=== PATIENT | male | born 1945 | race Caucasian/White ===

== ENCOUNTER → 2016-10-23 | Outpatient (CLI) | payer OTHER, BC ==
[~2016-10-23] MED LIST: CLON0.5T3 PO; IBUP-1050 PO; MULT-506 PO; OXYC-88 PO
== END | disposition home or self-care (01) ==
LOC: C.RDSM 11:45
PROVIDERS: ATTEND Physical Medicine & Rehabilitation Sports Medicine
DX: M17.12 Unilateral primary osteoarthritis, left knee (principal); M79.671 Pain in right foot

== ENCOUNTER 2017-02-09 15:05 | Emergency (ER) | payer OTHER, BC ==
[~2017-02-09] VITALS: Ht 177.8 cm; Wt 101.8 kg
[~2017-02-09 15:05] MED LIST changes: -MULT-506 PO
[2017-02-09] MEDS ORDERED: MULT-506 PO (15:13)
[2017-02-09 15:22] VITALS: TEMP 36.9; Ht 177.8 cm; Wt 101.8 kg
[2017-02-09] MEDS ORDERED: KLN5X PO (16:00)
[2017-02-09] MEDS ORDERED: RANI150T2 PO (16:00)
[2017-02-09] MEDS ORDERED: CHOL1000 PO (16:00)
--- NOTE | 2017-02-09 16:20 | EMERGENCY ROOM VISIT NOTE ---
History Report prepared by Codi: Zia Nj Under the Supervision of: Dr. Edwin Johns M.D. First contact with patient: 15:27 Chief Complaint: CONSTIPATION Stated Complaint: HARD STOOL LODGED IN ANUS, CANNOT MOVE Nursing Triage Summary: Pt states, "I suffer from constipation from medication I take. A very hard stool got stuck half way in and half way out. To tell you the truth while I was sitting out there, it feels like it receded so it's not as painful." Denies abd pain or n/v. History of Present Illness The patient is a 71 year old male who presents to the Emergency Room with complaints of constipation starting yesterday. The patient states that he has chronic constipation and today he tried to have a bowel movement, however nothing would come out and was stuck in his anus. The patient states that he thinks that the constipation is due to his pantoprazole for his GERD, though he is taking ranitidine now, and he uses Colace as a stool softener every couple of days. He reports that he has not taken a stool softener for the past ten days , and he has been doing well until the past two days. He notes that he normally has a bowel movement every day, and he has not had one since yesterday. The patient denies any fever, chills, shortness of breath, chest pain, nausea, vomiting, abdominal pain, hematochezia, numbness or weakness in his legs, ad urinary symptoms. 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 Source of History: patient Onset: yesterday Position: other (global) Quality: other (constipation) Timing: constant Associated Symptoms: No fevers, No chills, No chest pain, No SOB, No nausea , No vomiting, No abdominal pain, No hematochezia, No weakness, No numbness Review of Systems See HPI for pertinent positives & negatives. A total of 10 systems reviewed and were otherwise negative. Past Medical & Surgical Medical Problems: (1) Lumbar stenosis with neurogenic claudication Old medical records were reviewed. Nurse's notes were reviewed and I agree with. Social History Smoking Status: Never Smoker Marital Status: Housing Status: lives with family Occupation Status: retired Current/Historical Medications Scheduled Cholecalciferol (Vitamin D3), 1,000 INTER.UNIT PO DAILY Clonazepam (Clonazepam), 0.5 MG PO HS Multivitamin (Multivitamin), 1 TAB PO QAM Ranitidine HCl (Ranitidine HCl), 150 MG PO BID Allergies Coded Allergies: Goodrich (Verified Allergy, Unknown, HAY FEVER, 04/18/15) Cat Dander (Verified Allergy, Unknown, HAY FEVER, 04/18/15) Sulfa Drugs (Verified Allergy, Unknown, extreme pain throughout entire body, 04/18/15) Physical Exam Vital Signs Date Time Temp Pulse Resp B/P (MAP) Pulse Ox O2 Delivery O2 Flow Rate FiO2 02/09/17 16:30 90 18 118/81 99 02/09/17 15:22 36.9 100 18 133/79 95 Room Air Physical Exam General: Non-ill appearing middle aged male in no acute distress. HEENT: Normal cephalic atraumatic. Pupils are equal round and reactive to light. Extraocular movements are intact. Oropharynx is pink with moist mucous membranes. No swelling of the mouth lips or tongue. Neck: Supple with a midline trachea. No meningeal signs or stiffness, no JVD or bruits. No Stridor. Chest: Clear to auscultation bilaterally. No wheezes or rhonchi. No increased work of breathing. Heart: regular rate and rhythm. Abdomen: Soft nontender, nondistended without rebound guarding or rigidity. Extremities: No cyanosis clubbing or edema. No calf tenderness or assymetry Spine/Back. Non tender to palpation. No CVA tenderness Rectal: There is hard stool that is holding the rectum open. It was manually disimpacted. It was heme occoult negative. Noral rectal tone. Normal sensation in the rectal area. Skin: Good turgor without rashes. Neurologic exam: Cranial nerves two through 12 are intact. Motor and sensation are intact and symmetrical throughout. Medical Decision & Procedures ED Course 1527: The patient was evaluated by the medical student. 1600: Past medical records reviewed. The patient was evaluated in room B7, and a complete history and physical examination were performed. I discussed the discharge instructions with the patient, and he was agreeable. He will be discharged home. Medical Decision Differentials include, but are not limited to; constipation, cauda equina, bowel obstruction. In the patient seems to feeling better. He has normal rectal tone and nothing to suggest cauda equina syndrome. His stool is nonbloody and guaiac-negative He feels better when like to go home. His abdomen is benign. He should use a stool softener and/or enema/dulcolax. He should return if: increasing pain or problems, any new problems or concerns. He should follow-up with his doctor this week for recheck if not better. Medication Reconcilliation Current Medication List: was personally reviewed by me Blood Pressure Screening Patient's blood pressure: Normal blood pressure Impression Primary Impression: Constipation Scribe Attestation The scribe's documentation has been prepared under my direction and personally reviewed by me in its entirety. I confirm that the note above accurately reflects all work, treatment, procedures, and medical decision making performed by me. Departure Information Dispostion Home / Self-Care Referrals Amrit Umaña D.O. (PCP) Forms HOME CARE DOCUMENTATION FORM, IMPORTANT VISIT INFORMATION Patient Instructions My [facility] Additional Instructions Rest. Use a stool softener You can also try [id number] Dulcolax suppositories or enema Return if: worsening of symptoms, numbness or weakness, fever or chills, any new problems or concerns Follow-up with your doctor this week for recheck if not 100% better
[2017-02-09 16:30] VITALS: BP 118/81; PULSE 90; O2SAT 99
== END 2017-02-09 16:32 | disposition home or self-care (01) ==
LOC: C.EDB 15:06
DX: K59.00 Constipation, unspecified (principal); M48.062 Spinal stenosis, lumbar region with neurogenic claudication; Z79.899 Other long term (current) drug therapy

== ENCOUNTER → 2017-02-16 | Outpatient (CLI) | payer OTHER, BC ==
[~2017-02-16] MED LIST changes: +CHOL1000 PO; -CLON0.5T3 PO; -IBUP-1050 PO; +KLN5X PO; +MULT-506 PO; -OXYC-88 PO; +RANI150T2 PO
[2017-02-16 16:20] LABS: BLOOD UREA NITROGEN 20 mg/dl (7-18); BUN/CREATININE RATIO 20.7 (10-20); CALCIUM 9.3 mg/dl (8.5-10.1); CARBON DIOXIDE 31 mmol/L (21-32); CHLORIDE 104 mmol/L (98-107); CREATININE 0.97 mg/dl (0.60-1.40); GLUCOSE 118 mg/dl (70-99); POTASSIUM 3.9 mmol/L (3.5-5.1); SODIUM 137 mmol/L (136-145)
== END | disposition home or self-care (01) ==
LOC: C.LAB 14:52
PROVIDERS: ATTEND Family Medicine
DX: R29.898 Other symptoms and signs involving the musculoskeletal system (principal)

== ENCOUNTER → 2017-02-17 | Outpatient (CLI) | payer OTHER, BC ==
[~2017-02-17] MED LIST changes: +GADAVIST IV PRN
--- NOTE | 2017-02-17 14:16 | DIAGNOSTIC IMAGING REPORT ---
LUMBAR SPINE MRI WITH AND WITHOUT CONTRAST HISTORY: Postop. BILATERAL LEG WEAKNESS TECHNIQUE: Multiplanar multisequence MRI of the lumbar spine was performed both before and after the intravenous administration of contrast. COMPARISON: Lumbar spine MRI 02/19/2015. FINDINGS: For the purpose of the report the L5-S1 disc space will be located on axial image 23 of 25. Alignment is intact. No fractures within the lumbar spine. Normal marrow signal intensity within the vertebral bodies. Moderate to severe disc space narrowing at L4-L5 and mild disc space narrowing at L5-S1. This remains unchanged. Moderate facet osteoarthritis at L5-S1 and mild facet osteoarthritis at L3-L4. The conus terminus at the L1 level. Posterior decompression at L4-L5. Small amount of edema and enhancement at the laminectomy site suggestive of postoperative change. No loculated fluid collections identified. The visualized retroperitoneal soft tissues are unremarkable. T11-T12: There is a left paracentral focal disc protrusion which is increased in size. This abuts and slightly deforms the left anterior cord. This results in severe left-sided neural foraminal narrowing. T12-L1: No significant central canal or neural foraminal narrowing. L1-L2: Tiny right paracentral focal disc protrusion without significant central canal or left-sided neural foraminal narrowing. Mild right-sided neural foraminal narrowing. This has slightly progressed. L2-L3: Small focal central disc protrusion which has slight progressed. This results in mild central canal narrowing. There is also mild right-sided neural foraminal narrowing. L3-L4: Broad-based posterior disc protrusion asymmetric to the left with ligamentum and facet hypertrophy. This results in moderate central canal narrowing. There is also moderate bilateral neural foraminal narrowing. This is similar to the prior study. L4-L5: No significant central canal narrowing due to the posterior decompression. Moderate right and mild left neural foraminal narrowing due to the facet hypertrophy . L5-S1: Broad-based posterior disc bulge with a left paracentral focal disc protrusion. This is similar to the prior study and results in severe left-sided neural foraminal narrowing. This abuts and displaces the left transiting nerve roots. IMPRESSION: 1. Interval L4-L5 laminectomy. 2. No change in the moderate central canal and moderate bilateral neural foraminal narrowing at L3-L4 . 3. Increase in size in a T11-T12 left paracentral focal disc protrusion. This results in severe left-sided neural foraminal narrowing. 4. Increase in size in a tiny right paracentral focal disc extrusion at L1-L2 resulting in mild right-sided neural foraminal narrowing. 5. Additional findings as described above. Electronically signed by: Timmy Tolbert M.D. 02/17/2017 2:15 PM Dictated Date/Time: 02/17/2017 1:56 PM
== END | disposition home or self-care (01) ==
LOC: C.MRI 10:10
PROVIDERS: ATTEND Family Medicine
DX: R29.898 Other symptoms and signs involving the musculoskeletal system (principal); M51.24 Other intervertebral disc displacement, thoracic region; Z98.890 Other specified postprocedural states

== ENCOUNTER 2017-09-30 07:21 | Inpatient (IN) | payer OTHER, BC ==
[2017-09-27 15:41] LABS: BASO % 0.1 %; BASO ABS # 0.01 K/uL (0-0.2); EOS % 0.6 %; EOS ABS # 0.05 K/uL (0-0.5); HEMATOCRIT 42.5 % (42-52); HEMOGLOBIN 14.5 g/dL (14.0-18.0); IG# 0.03 K/uL (0.00-0.02); LYMPH % 16.9 %; LYMPH ABS # 1.41 K/uL (1.2-3.4); MEAN CELL VOLUME 83.8 fL (80-100); MEAN CORPUSCULAR HEMOGLOBIN 28.6 pg (25-34); MEAN CORPUSCULAR HGB CONC 34.1 g/dl (32-36); MEAN PLATELET VOLUME 9.8 fL (7.4-10.4); MONO % 5.4 %; MONO ABS # 0.45 K/uL (0.11-0.59); NEUT % 76.6 %; NEUT ABS # 6.41 K/uL (1.4-6.5); PLATELET COUNT 205 K/uL (130-400); RED CELL DISTRIBUTION WIDTH CV 14.2 % (11.5-14.5); RED CELL DISTRIBUTION WIDTH SD 42.3 fL (36.4-46.3); WHITE BLOOD COUNT 8.36 K/uL (4.8-10.8)
[2017-09-27 15:57] LABS: PTT PATIENT 25.2 SECONDS (21.0-31.0)
--- NOTE | 2017-09-27 16:01 | DIAGNOSTIC IMAGING REPORT ---
CHEST 2 VIEWS ROUTINE CLINICAL HISTORY: PRE OP TESTING, WENT TO LAB FIRST, SEND TO [facility] COMPARISON STUDY: 05/28/2014 FINDINGS: The bones soft tissues and hemidiaphragms are normal. The cardiomediastinal silhouette is normal. The lungs are clear. The pulmonary vasculature is normal. IMPRESSION: Negative chest. The above report was generated using voice recognition software. It may contain grammatical, syntax or spelling errors. Electronically signed by: Yuri Telles M.D. 09/27/2017 4:00 PM Dictated Date/Time: 09/27/2017 3:59 PM
[2017-09-27 16:31] LABS: BLOOD UREA NITROGEN 18 mg/dl (7-18); CALCIUM 9.1 mg/dl (8.5-10.1); CARBON DIOXIDE 25 mmol/L (21-32); CREATININE 0.68 mg/dl (0.60-1.40); GLUCOSE 86 mg/dl (70-99); POTASSIUM 3.8 mmol/L (3.5-5.1); SODIUM 135 mmol/L (136-145)
[2017-09-28 14:42] VITALS: BMI 31.0
--- NOTE | 2017-09-28 15:04 | PAT Medication Instructions ---
Service Date Sep 28, 2017. Current Home Medication List Acetaminophen (Tylenol), 1,000 MG PO Q6 Cholecalciferol (Vitamin D3), 1,000 INTER.UNIT PO QAM Clonazepam (Clonazepam), 0.25 MG PO HS PRN for Sleep Dextromethorphan-Guaifenesin (Mucus Relief Dm Max), 5 ML PO Q4H PRN for Cough Docusate Sodium (Docusate Sodium), 100 MG PO BID Famotidine (Pepcid), 20 MG PO BID Gabapentin (Gabapentin), 300 MG PO TID Magnesium Citrate (Magnesium Citrate 1.745 gm/30Ml), 150 ML PO DAILY PRN for Constipation Polyethylene Glycol 3350 (Miralax), 17 GM PO NOON Senna/Docusate Sod (Senokot S), 1 TAB PO LUNCH Medication Instructions For Your Scheduled Surgery - Continue as directed: Clonazepam (Clonazepam), 0.25 MG PO HS PRN for Sleep - Hold the following medications the morning of surgery: Cholecalciferol (Vitamin D3), 1,000 INTER.UNIT PO QAM Dextromethorphan-Guaifenesin (Mucus Relief Dm Max), 5 ML PO Q4H PRN for Cough Docusate Sodium (Docusate Sodium), 100 MG PO BID Famotidine (Pepcid), 20 MG PO BID Magnesium Citrate (Magnesium Citrate 1.745 gm/30Ml), 150 ML PO DAILY PRN for Constipation Polyethylene Glycol 3350 (Miralax), 17 GM PO NOON Senna/Docusate Sod (Senokot S), 1 TAB PO LUNCH - Take the following medications the morning of surgery with a sip of water: Gabapentin (Gabapentin), 300 MG PO TID Acetaminophen (Tylenol), 1,000 MG PO Q6 (okay to take up to 4 hours prior to surgery if needed) If you have any questions please call us at [phone] or [phone] or [phone]
--- NOTE | 2017-09-29 14:07 | HISTORY & PHYSICAL EXAMINATION ---
DATE OF ADMISSION: 09/30/2017 He is being preoped for burst fracture lumbar spine. Date of injury September 15. HISTORY OF PRESENT ILLNESS: Dave is pleasant. He is 71. He is compromised in a wheelchair. He has back and lower extremity pain, weakness, difficulty with ambulation. He was diagnosed with a burst fracture, sent to my office and we are scheduling him surgery. Actually he was [facility] at [facility] at the time of this dictation. PAST MEDICAL HISTORY: Negative for heart disease, diabetes, carcinoma, liver issues. Does have usual childhood diseases. PAST SURGICAL HISTORY: Lumbar laminectomy, cataract surgery. ALLERGIES: SULFA, BACTRIM. FAMILY HISTORY: Heart disease, stroke. SOCIAL HISTORY: He is . No alcohol, tobacco. Little activity. REVIEW OF SYSTEMS: Negative for fevers, sweats, chills, weight loss or gain. Denies any chest pain, palpitations. Denies asthma, wheezing, shortness of breath. Denies nausea, vomiting. Does have frequent urination, but no loss of bowel or bladder function. No confusion or skin issues. He has back pain, tingling and some weakness and cramping. MEDICATIONS: Include Centrum Silver, D3, Colace, gabapentin, Senokot, Naprosyn. OBJECTIVE: GENERAL: He is alert, oriented, mentation normal at 71, 5 feet 10 inches, 206 pounds. He is in no terrible distress. Sitting, he can converse well. He cannot get up and stand very well at all. VITAL SIGNS: Blood pressure 138/80, pulse 80. CARDIAC: Normal S1, S2, no ectopy. LUNGS: Clear. ABDOMEN: Soft, nontender, bowel sounds present. EXTREMITIES: He has pain with flexion and extension of the spine. We did not get him up and stand him here today. NEUROLOGIC: Essentially normal with adequate motor strength in sitting position, he has decreased strength in standing position. IMAGES: Demonstrate a L2 burst fracture of the lumbar spine. PLAN: Includes operative fixation of his L2 burst fracture via laminectomy and fusion L1-L3.
[2017-09-30] VITALS (7 sets, daily range): BP systolic 114–149; BP diastolic 72–85; PULSE 83–110; TEMP 36.4–36.9; O2SAT 93–100; Ht 177.8 cm; Wt 93.3 kg
[~2017-09-30] VITALS: Ht 177.8 cm; Wt 93.3 kg
[~2017-09-30 07:21] MED LIST changes: +ACET-1256 PO; +CEFAZOLIN 2000MG IV PUSH 15 ML IV SCH; +DEXT15LI PO; +DOCU100C31 PO; +FAMO20TA9 PO; -GADAVIST IV PRN; +LACTATED RINGER'S 1000ML 1,000 ML IV SCH; -MULT-506 PO; +NRN100 PO; +NSS 1000ML IV SCH; +POLY335019 PO; -RANI150T2 PO; +SENN-65 PO; +[UNRECOGNIZED DRUG - CODE] PO
[2017-09-30] MEDS ORDERED: PROPOFOL IV EMULSION 10 MG/ML 20 ML VIAL ONE (07:42)
[2017-09-30] MEDS ORDERED: MIDAZOLAM HCL 1 MG/ML 2ML VIAL ONE (07:42)
[2017-09-30] MEDS ORDERED: ROCURONIUM BROMIDE 10 MG/ML 5 ML VIAL ONE (07:42)
[2017-09-30] MEDS ORDERED: LIDOCAINE HCL 2% 2 ML VIAL (20MG/ML) ONE (07:42)
[2017-09-30] MEDS ORDERED: ONDANSETRON INJ 2 MG/ML 2 ML VIAL ONE (07:42)
[2017-09-30] MEDS ORDERED: FENTANYL CITRATE INJ 50 MCG/1 ML 2 ML VIAL ONE ×2 (07:42→10:17)
[2017-09-30] MEDS ORDERED: THROMBIN FOR SOLN 20000 UNIT KIT ONE (08:33)
[2017-09-30] MEDS ORDERED: GELATIN SPONGE SZ 100 ONE (08:33)
[2017-09-30] MEDS ORDERED: BACITRACIN 50000 UNIT VIAL ONE (08:34)
[2017-09-30] MEDS ORDERED: BUPIVACAINE/EPINEPHRINE 0.5% MPF 1:200,000 30 ML VIAL ONE (08:34)
[2017-09-30] MEDS ORDERED: VANCOMYCIN HCL 1000MG/20ML VIAL ONE (08:37)
[2017-09-30] MEDS ORDERED: EpHEDrine SULFATE INJ 50 MG/ML AMP IV PRN (08:45)
[2017-09-30] MEDS ORDERED: ATROPINE SULFATE 0.1 MG/ML 5ML SYR IV PRN (08:45)
[2017-09-30] MEDS ORDERED: ONDANSETRON INJ 2 MG/ML 2 ML VIAL IV PRN ×2 (08:45→12:15)
[2017-09-30] MEDS ORDERED: FENTANYL CITRATE INJ 50 MCG/1 ML 2 ML VIAL IV PRN (08:45)
[2017-09-30] MEDS ORDERED: HYDROmorphone INJ 0.5 MG/0.5 ML SYR IV PRN (08:45)
[2017-09-30] MEDS ORDERED: PHENYLEPHRINE 100MCG/ML 5ML SYR IV PRN (08:45)
--- NOTE | 2017-09-30 09:28 | History & Physical Bridge Note ---
H&P Re-Evaluation Bridge Note: I have examined the patient, reviewed the History & Physical and in the interval since the performance of the History & Physical I have noted the following changes of clinical significance: No changes noted
[2017-09-30] MEDS ORDERED: NEOSTIGMINE METHYLSULFATE 5 MG/5 ML SYR ONE (11:03)
[2017-09-30] MEDS ORDERED: GLYCOPYRROLATE INJ 0.2 MG/ML VIAL ONE (11:03)
--- NOTE | 2017-09-30 11:38 | DIAGNOSTIC IMAGING REPORT ---
SPINE ONE VIEW, ANY LEVEL HISTORY: 71 years-old Male L1-L2 L2-L3 LAMI AND FUSION status post lumbar spinal fusion COMPARISON: Lumbar spine CT 09/25/2017 TECHNIQUE: Single crosstable lateral spot fluoroscopic image of the lumbar spine was obtained utilizing 16.0 seconds fluoroscopy time FINDINGS: Status post laminectomy with interbody mars and screw fusion at the L1-L2 and L2-L3 levels. Cannulated screws are present at L1 and L3. Acute-appearing burst fracture at L2 redemonstrated with associated retropulsion. Alignment is otherwise satisfactory. IMPRESSION: Fluoroscopic assistance as above. Please see operative report for further details. The above report was generated using voice recognition software. It may contain grammatical, syntax or spelling errors. Electronically signed by: Chuckie Mcbride M.D. 09/30/2017 11:37 AM Dictated Date/Time: 09/30/2017 11:35 AM
[2017-09-30] MEDS ORDERED: HYDROmorphone INJ 2 MG/ML SYR/VIAL ONE (11:57)
--- NOTE | 2017-09-30 11:57 | [facility] Post Operative Brief Note ---
Immediate Operative Summary Operative Date Sep 30, 2017. Pre-Operative Diagnosis burst fracture Post-Operative Diagnosis same Procedure(s) Performed instrumentation and fusion l1-[address] Keith Body Presser Surgeon(s) FABIANA Boggs Estimated Blood Loss 200 Findings Consistent with Post-Op Diagnosis Specimens 0 Overlapping Procedure I was immediately available: during the entire case
[2017-09-30] MEDS ORDERED: SODIUM CHLORIDE 0.9% 1000ML 1,000 ML IV SCH ×2 (12:01→14:00)
[2017-09-30] MEDS ORDERED: LORAZEPAM INJ 1 MG in SYRINGE 0 ML IV PRN (12:15)
[2017-09-30] MEDS ORDERED: PROMETHAZINE HCL INJ 12.5 MG in SODIUM CHLORIDE 0.9% 50ML 50 ML IV PRN (12:15)
[2017-09-30] MEDS ORDERED: ACETAMINOPHEN 325 MG TAB PO PRN (12:15)
[2017-09-30] MEDS ORDERED: NON-FORMULARY MEDICATION (Polyethylene Glycol 3350 (Miralax) 17 GM) PO SCH (12:15)
[2017-09-30] MEDS ORDERED: MAGNESIUM HYDROXIDE SUSP 30 ML UDC PO PRN (12:15)
[2017-09-30] MEDS ORDERED: CLONAZEPAM 0.5 MG TAB PO PRN (12:15)
[2017-09-30] MEDS ORDERED: MAGNESIUM CITRATE 296 ML/BTL PO PRN (12:15)
[2017-09-30] MEDS ORDERED: NALOXONE HCL 0.4 MG/1 ML VIAL/CARP IV PRN (12:15)
[2017-09-30] MEDS ORDERED: METOCLOPRAMIDE HCL INJ 5 MG/ML 2 ML VIAL IV PRN (12:15)
[2017-09-30] MEDS ORDERED: LORAZEPAM 1 MG TAB PO PRN (12:15)
--- NOTE | 2017-09-30 12:36 | Anesthesiology Progress Note ---
Anesthesia Post Op Note Date & Time Sep 30, 2017 at 12:36 Vital Signs Pain Intensity: 4 Vital Signs Past 12 Hours Date Time Temp Pulse Resp B/P (MAP) Pulse Ox O2 Delivery O2 Flow Rate FiO2 09/30/17 12:20 84 21 154/75 100 Oxymask 10 09/30/17 12:10 93 16 122/74 100 Oxymask 10 09/30/17 12:01 36.2 98 16 145/74 100 Oxymask 10 09/30/17 08:04 36.7 83 18 140/79 93 Room Air Notes Mental Status: alert / awake / arousable, participated in evaluation Pt Amnestic to Procedure: Yes Nausea / Vomiting: adequately controlled Pain: adequately controlled Airway Patency, RR, SpO2: stable & adequate BP & HR: stable & adequate Hydration State: stable & adequate Anesthetic Complications: no major complications apparent
[2017-09-30 12:58] LABS: HEMATOCRIT 41.6 % (42-52); HEMOGLOBIN 14.1 g/dL (14.0-18.0)
[2017-09-30] MEDS: HYDROmorphone HCL 0.5MG/ML 50 ML CASSETTE IV PRN ×3 (13:22→23:15)
[2017-09-30] MEDS ORDERED: GABAPENTIN 100 MG CAP PO SCH (14:00)
--- NOTE | 2017-09-30 14:06 | OPERATIVE REPORT ---
DATE OF OPERATION: 09/30/2017 PREOPERATIVE DIAGNOSIS: Burst fracture, L2 vertebrae. POSTOPERATIVE DIAGNOSIS: Same. PROCEDURE: Included 1. Open reduction of the L2 burst fracture. 2. A 3-level instrumentation of spine, L1, L2-L3 of the lumbar spine. 3. Decompression laminectomy of L2 and L3 level laminectomy. 4. Posterior lateral arthrodesis. ANESTHESIA: General. COMPLICATIONS: Zero. BLOOD LOSS: 200. DESCRIPTION OF PROCEDURE: Patient was taken to the operating room, and general intubated anesthetic provided to the patient, placed prone, prepped and draped sterile. Formal timeout obtained. Made a skin incision, fascial incision. We marked the disease and injured L2 vertebra. We went up 1 level, down to level to L1 and L3 respectively. We got out to the transverse processes. I was safely able to get pedicle screws from L1 down to L3 on the right hand side and on the left hand side, 2 level instrumentation. I was pleased with the fit, reduction, and the positioning. We then decompressed the neural elements doing the laminectomy 3 and 2 lumbar spine. We carefully dissected the dura. There was significant pressure. We then fastened the longitudinal mars to the pedicle screws, secured these in proper positioning, tightened up the caps. We irrigated and closed over a Hemovac drain with 1 Vicryl suture, 2-0 subcuticular fat, and 3-0 nylon on the skin. Sterile dressings applied. The wound was closed over vancomycin powder and Hemovac drain. There were no complications. I attest to the content of the Intraoperative Record and any orders documented therein. Any exception s are noted below.
[2017-09-30] MEDS ORDERED: GABAPENTIN 300 MG CAP PO SCH (14:15)
[2017-09-30] MEDS ORDERED: GUAIFENESIN/DEXTROM SYRUP 100MG/10MG 5ML UDC PO PRN (14:30)
[2017-09-30] MEDS: DEXAMETHASONE INJ 10 MG in SYRINGE 0 ML IV SCH ×2 (16:05→22:44)
[2017-09-30] MEDS: CEFAZOLIN IV 2,000 MG in SYRINGE 0 ML IV SCH (16:06)
[2017-09-30] MEDS ORDERED: NURSING VERBAL MED ORDER ONE (16:30)
[2017-09-30] MEDS: GABAPENTIN 100 MG CAP PO SCH ×2 (17:18→20:48)
[2017-09-30] MEDS: FAMOTIDINE 20 MG TAB PO SCH (20:48)
[2017-09-30] MEDS: DOCUSATE SODIUM 100 MG CAP PO SCH (20:49)
[2017-10-01] MEDS: CEFAZOLIN IV 2,000 MG in SYRINGE 0 ML IV SCH ×2 (01:09→09:10)
[2017-10-01 03:30] VITALS: BP 127/77; PULSE 97; TEMP 36.8; O2SAT 92
[2017-10-01] MEDS ORDERED: NURSING DECISION MEDICATION ORDER SCH (03:45)
[2017-10-01] MEDS ORDERED: BISACODYL 10 MG SUPP PR PRN (06:00)
[2017-10-01] MEDS ORDERED: BISACODYL 5 MG TABEC PO PRN (06:00)
[2017-10-01] MEDS: DEXAMETHASONE INJ 10 MG in SYRINGE 0 ML IV SCH ×3 (06:15→21:58)
[2017-10-01 07:02] VITALS: BP 122/74; PULSE 93; TEMP 36.8; O2SAT 94
[2017-10-01] MEDS: HYDROmorphone HCL 0.5MG/ML 50 ML CASSETTE IV PRN (07:05)
--- NOTE | 2017-10-01 07:23 | Anesthesiology Progress Note ---
Anesthesia Post Op Note Date & Time Oct 01, 2017 at 07:22 Vital Signs Pain Intensity: 2.0 Vital Signs Past 12 Hours Date Time Temp Pulse Resp B/P (MAP) Pulse Ox O2 Delivery O2 Flow Rate FiO2 10/01/17 07:02 36.8 93 17 122/74 (90) 94 Room Air 10/01/17 03:30 36.8 97 16 127/77 (94) 92 Room Air 09/30/17 23:23 36.9 104 16 134/84 (101) 93 Room Air 09/30/17 23:20 Room Air 09/30/17 19:49 36.5 110 17 149/85 (106) 98 Nasal Cannula 2.0 Notes Mental Status: alert / awake / arousable, participated in evaluation Pt Amnestic to Procedure: Yes Nausea / Vomiting: adequately controlled Pain: adequately controlled Airway Patency, RR, SpO2: stable & adequate BP & HR: stable & adequate Hydration State: stable & adequate Anesthetic Complications: no major complications apparent
[2017-10-01] MEDS ORDERED: DC PCA ONE (08:00)
[2017-10-01] MEDS ORDERED: OXYCODONE/ACETAMINOPHEN 5-325 TAB PO PRN (08:00)
[2017-10-01] MEDS ORDERED: HYDROmorphone INJ 2 MG/ML SYR/VIAL IV PRN (08:00)
[2017-10-01] MEDS ORDERED: HYDROmorphone INJ 0.5 MG/0.5 ML SYR IV PRN (08:00)
[2017-10-01] MEDS: POLYETHYLENE (MIRALAX) 17 GM PACK PO SCH (09:10)
[2017-10-01] MEDS: FAMOTIDINE 20 MG TAB PO SCH ×2 (09:10→20:47)
[2017-10-01] MEDS: DOCUSATE SODIUM 100 MG CAP PO SCH ×2 (09:11→20:31)
[2017-10-01] MEDS: GABAPENTIN 100 MG CAP PO SCH ×3 (09:11→20:31)
[2017-10-01] MEDS: CHOLECALCIFEROL 1000 INTER.UNIT TAB PO SCH (09:11)
[2017-10-01 11:45] VITALS: BP 133/75; PULSE 105; O2SAT 95
[2017-10-01 11:48] VITALS: BP 147/78; PULSE 100; TEMP 36.7; O2SAT 94
--- NOTE | 2017-10-01 12:04 | Discharge Instructions ---
Discharge Instructions Date of Service Oct 01, 2017. Admission Reason for Admission: Burst Fracture Lumbar Spine Discharge Discharge Diagnosis / Problem: same Discharge Goals Goal(s): Improve function Activity Recommendations Activity Limitations: as noted below Lifting Limitations: no more than 5 pounds Exercise/Sports Limitations: gradually increase as tolerated Shower/Bathe: may shower/bathe in 3 days . Instructions / Follow-Up Instructions / Follow-Up MEDICATIONS: Please take your prescriptions as instructed at your pre-op appointment. SPECIAL CARE: The following information is intended to answer some of the common questions and concerns regarding your surgery. Each patient is an individual and receives individual counselling throughout the course of treatment, from diagnosis to surgery all the way through recovery. What follows is not an exhaustive list, but should be a useful guide to some of the common questions and concerns patients have regarding their surgeries. These are not provided to keep you from calling us; rather, they give you something accurate and concrete to reference as you recover from your procedure. If you need us, we are available to you. As always, if you are not sure about something, call us at [phone]. MEDICAL EMERGENCIES: For these conditions, call 911 or go to your local hospital-based Emergency Department - not [facility] or equivalent. * Paralysis * Severe chest pain or difficulty breathing * Swelling or redness of either leg Spine procedures can be rather complex and though complications are rare, they do occur. In such cases, effective advice regarding emergency situations cannot always be addressed over the telephone. You may be referred to the emergency department for more effective management of your problem. Activity Limitations: It is important to give your body time to heal, so please limit your activities : * In general, don't do anything that moves your spine too much. You should avoid contact sports, twisting or heavy lifting while you recover. * 5-10 pounds is all you should attempt to lift. * You should not plan on driving for approximately 3 weeks and you should avoid traveling more than 30-45 minutes at a time. Longer trips should be broken down with walking breaks spaced appropriately. * Physical therapy is not usually required. * Walking and good posture practices will help you recover and regain your function. * Avoid straining or sudden changes in position. * In general, the goal is to take it easy and recover. Don't cause any new problems. Just relax. Showers: * Do not take a bath, use a Jacuzzi or hot tub or otherwise submerge your incision. * It is usually safe to take a shower 4-5 days after your surgery. * Your incision does not require any special creams or ointments. * Simply clean it with soap and water, dry and re-dress with a clean bandage afterwards. Incision: * Keep incision clean, dry and protected until your first follow-up appointment. * Some amount of drainage and redness is normal. Any drainage should be fairly clear and not have a foul odor. * If you feel anything is wrong or you have excessive drainage, please call us. * Your stitches and raj will be removed 10-14 days after your surgery. At the time of your first post-op visit. * Neck surgeries are typically closed with a suture underneath the skin. The steri-strips over the incision should be maintained until we see you in the office. Bracing: * You may be provided with a back or neck brace to encourage good posture and prevent injury. It will remind you not to do too much as you heal and will alert others to the fact that you have had a surgery. * Back braces may be removed for showers and when you are resting at home. They must be worn when you are walking around for any period of time or for travel. * For neck surgery, you will likely be provided with two cervical collars. The soft collar ([place] or foam rubber) is worn most commonly throughout the day and while sleeping. The plastic collar (provided at the hospital) is for showering/bathing. * Except while eating, collars should remain in place. More specifically, bracing is provided for a purpose and should be worn. * Please obtain your brace or collars prior to your operation and bring them to the hospital with you on the day of surgery. * You should also bring your collars to your post-op appointment with Dr. Keith. You should always take good care of your body and practice healthy habits, especially following surgery. You should: * Follow your doctor's treatment plan * Sit and stand properly with good posture (ears over shoulders, shoulders over hips) Don't slouch * Learn to lift correctly * Exercise regularly (low-impact aerobic exercise is especially good, but check with your doctor first) * Generally, be up and walking for 5-10 minutes at a time at least 3-4 times per day from the day you get home * Increasing walking to tolerance until you can walk for 20-30 minutes at a time * Attain and maintain a healthy body weight * Eat healthy foods ( a well-balanced, low-fat diet rich in fruits and vegetables) and get enough calcium * Avoid excessive use of alcohol When to call our office - If you notice any of the following: * Increased pain not relieve by pain medicine * Fevers greater then 100 degrees F, chills or flu symptoms * Increased redness around incision * Drainage from the incision that is not clear * Any foul smelling drainage * Swelling or fluid collection beneath the skin Miscellaneous: * In the hospital, you may be given a walker or cane for support while walking. These are temporary needs and are intended to prevent injuries due to falls. You may discontinue them when you feel strong and steady enough on your feet. * Sleep in a comfortable position. We find that many patients find a lounge chair or recliner with several pillows to be beneficial in the early post-operative period. * The support stockings should be used for 7-10 days and may be discontinued when you are back to walking more and conducting usual household activities. No problem is insignificant. We are here to help you and get you well. Contact us at [phone]. Definitions: Foraminotomy: If part of the disc or a bone spur (osteophyte) is pressing on a nerve as it leaves the vertebra (through an exit called the foramen), a foraminotomy may be done. Otomy means "to make an opening." A foraminotomy is making the opening of the foramen larger, so the nerve can exit without being compressed. Laminotomy: Similar to the foraminotomy, a laminotomy makes a larger opening, this time in your bony plate protecting your spinal canal and spinal cord (the lamina). The lamina may be pressing on your nerve, so the surgeon may make more room for the nerves using a laminotomy. Laminectomy: Sometimes, a laminotomy is not sufficient. The surgeon may need to remove all or part of the lamina. This procedure is called a laminectomy. This can often be done at many levels without any harmful effects. Current Hospital Diet Patient's current hospital diet: Regular Diet Discharge Diet Recommended Diet: Regular Diet Procedures Procedures Performed: instrumentation and fusion l1-3 Pending Studies Studies pending at discharge: no Medical Emergencies . Who to Call and When: Medical Emergencies: If at any time you feel your situation is an emergency, please call 911 immediately. . Non-Emergent Contact Non-Emergency issues call your: Primary Care Provider . "Provider Documentation" section prepared by Henrique Keith. .
[2017-10-01 15:49] VITALS: BP 125/68; PULSE 80; TEMP 36.5; O2SAT 96
[2017-10-01] MEDS: OXYCODONE/ACETAMINOPHEN 5-325 TAB PO PRN (21:57)
[2017-10-01 23:01] VITALS: BP 126/73; PULSE 93; TEMP 36.8; O2SAT 93
[2017-10-02 06:04] VITALS: BP 120/74; PULSE 91; TEMP 36.8; O2SAT 93
[2017-10-02] MEDS ORDERED: OXYC-57 PO (09:00)
[2017-10-02] MEDS: CHOLECALCIFEROL 1000 INTER.UNIT TAB PO SCH (09:05)
[2017-10-02] MEDS: POLYETHYLENE (MIRALAX) 17 GM PACK PO SCH (09:05)
[2017-10-02] MEDS: GABAPENTIN 100 MG CAP PO SCH (09:05)
[2017-10-02] MEDS: DOCUSATE SODIUM 100 MG CAP PO SCH (09:05)
--- NOTE | 2017-10-02 09:57 | DISCHARGE SUMMARY ---
ADMITTING DIAGNOSIS: Burst fracture of lumbar spine. DISCHARGE DIAGNOSIS: Burst fracture of lumbar spine. PROCEDURE: Included an open reduction internal fixation, repair of a burst fracture, L2 vertebrae. HOSPITAL COURSE: Dave tolerated the procedure well, out of bed to chair day 1 and day 2. He is alert, oriented. He is still very weak to the extremities. Taking p.o. Good bowel sounds. No shortness of breath. Wound clean. ASSESSMENT: Status post burst fracture repair. PLAN: [facility] discharge later on today. Followup examination in the office in approximately 10 days.
[2017-10-02] MEDS: FAMOTIDINE 20 MG TAB PO SCH (10:17)
[2017-10-02] MEDS: OXYCODONE/ACETAMINOPHEN 5-325 TAB PO PRN (10:18)
[2017-10-02 11:04] VITALS: BP 120/74; PULSE 91; TEMP 36.8; O2SAT 93
== END 2017-10-02 14:14 | DRG 460 ==
LOC: C.ACU 07:21 → C.3E 12:08 → ENRESERV 12:31
PROVIDERS: ADMIT Orthopaedic Surgery Orthopaedic Surgery of the Spine; ATTEND Orthopaedic Surgery Orthopaedic Surgery of the Spine
PROC: 0QS004Z Reposition Lumbar Vertebra with Internal Fixation Device, Open Approach (ICD-10-PCS; principal; 2017-09-30 09:30)
PROC: 0SG10J1 Fusion of 2 or more Lumbar Vertebral Joints with Synthetic Substitute, Posterior Approach, Posterior Column, Open Approach (ICD-10-PCS; principal; 2017-09-30 09:30)
DX: S32.021A Stable burst fracture of second lumbar vertebra, initial encounter for closed fracture (principal); Z79.899 Other long term (current) drug therapy; X58.XXXA Exposure to other specified factors, initial encounter

== ENCOUNTER → 2017-10-25 | Outpatient (CLI) | payer OTHER, BC ==
[~2017-10-25] MED LIST changes: -CEFAZOLIN 2000MG IV PUSH 15 ML IV SCH; -LACTATED RINGER'S 1000ML 1,000 ML IV SCH; -NSS 1000ML IV SCH; +OXYC-57 PO
--- NOTE | 2017-10-25 10:11 | DIAGNOSTIC IMAGING REPORT ---
MRI OF THE BRAIN WITHOUT CONTRAST CLINICAL HISTORY: G20 DIFFICULTY WITH BALANCE. MULTIPLE FALLS. DIFFICULTY WITH SWALLOWING. WORSENING SYMPTOMS. COMPARISON STUDY: None. FINDINGS: Sagittal T1, axial diffusion, proton density and T2 weighted axial, coronal FLAIR, and axial T1-weighted images were acquired. No intra or extra-axial mass lesions are visualized Axial diffusion-weighted images reveal no evidence of acute or subacute infarction. There is no evidence of ventricular dilatation. Proton density T2-weighted and FLAIR images reveal minimal foci of increased T2 signal within the white matter, likely on a small vessel basis. There are no abnormal flow voids. IMPRESSION: Normal MRI of the brain for age Electronically signed by: Rivera Montiel M.D. 10/25/2017 10:10 AM Dictated Date/Time: 10/25/2017 10:07 AM
== END | disposition home or self-care (01) ==
LOC: C.MRI 08:48
PROVIDERS: ATTEND Family Medicine
DX: G20 Parkinson's disease (principal)